=== PATIENT | female | born 1990 | race Caucasian/White ===

== ENCOUNTER 2017-01-05 12:12 | Emergency (ER) | payer BC ==
[~2017-01-05] VITALS: Ht 154.9 cm; Wt 65.2 kg
[~2017-01-05 12:12] MED LIST: CALC750T4; IBUP-1547 PO; OXYC1TAB8 PO; PREN1TAB53 PO
[2017-01-05 12:15] VITALS: Ht 154.9 cm; Wt 65.2 kg
--- OUTSIDE RECORDS SUMMARY | 2017-01-05 12:17 | XMS REPORT | Continuity of Care Document ---
Author Author [facility] Organization [facility] Address Unknown Phone Unavailable Support Name Relationship Address Phone JOHN MONTIEL MD Caregiver [address] [place] [address] [place] [address] Unavailable JOHN MONTIEL MD Caregiver [address] [place] [address] [place] [address] Unavailable JOSEFA STRONG MD Caregiver [address] [place] [address] [place] [address] Unavailable PAULINO ESPINOZA Next Of Kin [address] [id number] Insurance Providers Guarantor Yamila Orlando Address [address] [place] [address] CELL Email [email or web address] [employer] Other Policy Number [id number] Subscriber's Name Paulino Espinoza Relationship 01 Spouse Group Number [id number] Effective Date 14 Advance Directives Directive Response Recorded Date/Time Ordered Resuscitation Status Full Code 07/26/16 6:15am Resuscitation Documents on File No 07/26/16 6:50am DPOA for Healthcare Only No 07/26/16 6:50am Living Will No 07/26/16 6:50am Problems Active Problems Medical Problem Onset Date Status Spotting and cramping affecting , antepartum Unknown Acute Medications Current Home Medications Medication Dose Units Route Directions Days Qty Instructions Start Date Calcium Carbonate (Tums) 300 Mg Tab.chew 07/26/16 Ibuprofen 800 Mg Tablet 800 Mg Oral Every 8 Hours as needed for Pain 30 Tablet 07/28/16 Oxycodone Hcl/Acetaminophen (Percocet 5-325 Mg Tablet) 5-325 Tablet 1-2 Tab Oral Every 4 Hours as needed for Pain 15 Tablet 07/28/16 Vits W-Ca,Fe,Fa(<1MG) () 1 Tab Tablet 1 Tab Oral Daily 05/08/11 Past Home Medications Medication Directions Ordered Status Cephalexin Monohydrate (Cephalexin) 500 Mg Capsule, 500 Mg Oral Every 8 Hours 06/14/13 Discontinued Social History Social History Problem Response Recorded Date/Time Onset Date Status Reason for Hospitalization 07/28/2016 8:53am Not Applicable Not Applicable Chewing Tobacco Status No 07/01/2013 8:47am Not Applicable Not Applicable Hx Substance Use No 07/26/2016 6:50am Not Applicable Not Applicable Hx Alcohol Use No 07/04/2015 1:43pm Not Applicable Not Applicable Has the pt used tobacco in the last 12 months No 07/26/2016 6:50am Not Applicable Not Applicable Query Response Start Date Stop Date Smoking Status Never smoker Hospital Discharge Instructions Instructions: Care Instructions: Reason for Hospitalization: I was in the hospital because (patient own words): to have a baby Discharge Diet: Regular Discharge Activity: per instruction sheet Follow Up Appointments: Dr Puri on September 06 at 2pm Pending Lab / Results: Will review at f/u apt Patient Instructions: per instruction sheet Wound/Incision Care: per instruction sheet Pain Management/Treatment: per instruction sheet Expected Signs/Symptoms: per instruction sheet Notify Physician If: per instruction sheet During Business Hours:: Please call the physician's office at [phone] After Business Hours:: Please call [phone] and have the heater operator page the physician. Condition at time of discharge: Good Plan of Care Discharge Date 07/28/16 1:52pm Disposition 01 DISCHARGED HOME, SELF-CARE Instructions/Education Provided MC Vaginal Delivery Prescriptions See Medication Section Care Plan and Goals See Discharge Instructions Section Functional Status Query Response Date Recorded Mobility Status Ambulatory July 28, 2016 8:53am Assistive Devices None July 28, 2016 8:53am Activity Limitations None July 28, 2016 8:53am Feeding Ability Independent July 28, 2016 8:53am Toileting Ability Independent July 28, 2016 8:53am Grooming Ability Independent July 28, 2016 8:53am Dressing Ability Independent July 28, 2016 8:53am Driving Ability Independent July 28, 2016 8:53am Housework Ability Independent July 28, 2016 8:53am Meal Preparation Ability Independent July 28, 2016 8:53am Stair Climbing Ability Independent July 28, 2016 8:53am Ability to complete ADL's impeded by No change July 28, 2016 8:53am Cognitive/Perceptual Impairments None July 28, 2016 8:53am Preferred Method of Learning Demonstration July 26, 2016 7:06am Allergies, Adverse Reactions, Alerts Allergen Type Severity Reaction Status Last Updated No Known Drug Allergies Allergy Unknown Active 07/26/16 Immunizations Query Response on File Recorded Date/Time Hx Influenza Vaccination Y 201007/01/13 8:47am Hx Pneumococcal Vaccination No 07/01/13 8:47am Hx Influenza Vaccination Y 201007/01/13 8:47am Influenza Vaccine Hx 05-24-16 07/26/16 6:50am Tdap Vaccine Hx 07-06-16 07/26/16 6:50am Vital Signs Acute Vital Signs Vital Response Date/Time Temperature (Fahrenheit) 98.2 deg F (96.8 - 99.1) 07/28/2016 1:20pm Temperature (Calculated Celsius) 36.62319 degrees C (36.0 - 37.3) 07/28/2016 1:20pm Pulse Rate (adult) 94 bpm (60 - 100) 07/28/2016 1:20pm Respiratory Rate 20 breaths/min (10 - 20) 07/28/2016 1:20pm O2 Sat by Pulse Oximetry 98 % (90 - 100) 07/28/2016 1:20pm Oxygen Delivery Method Room Air 07/28/2016 1:20pm Blood Pressure 118/78 mm Hg 07/28/2016 1:20pm Blood Pressure Source Automatic Cuff 07/28/2016 1:20pm Height (Feet) 5 feet 07/26/2016 6:50am Height (Inches) 1.00 inches 07/26/2016 6:50am Weight (Kilograms) 76.000 kg 07/26/2016 6:50am Height 5 ft 1 in 07/26/2016 6:50am Weight 167.55 lb 07/26/2016 6:50am Body Mass Index 31.0 kg/m^2 07/26/2016 6:50am Results Laboratory Results Test Name Result Units Flags Reference Collection Date/Time Result Date/ Time Comments Glucose Level 107 MG/DL 65-110 05/19/2016 3:50pm 05/19/2016 4:07pm White Blood Count 9.6 T/MM3 4.5-11.0 07/27/2016 7:08am 07/27/2016 8: 10am Red Blood Count 2.94 M/MM3 L 4.00-5.20 07/27/2016 7:08am 07/27/2016 8: 10am Hemoglobin 8.4 GM/DL D L 08-1207/27/2016 7:08am 07/27/2016 8:10am Hematocrit 25.5 % D L 36-46 07/27/2016 7:08am 07/27/2016 8:10am Mean Corpuscular Volume 86.7 UM3 80-100 07/27/2016 7:08am 07/27/2016 8: 10am Mean Corpuscular Hemoglobin 28.6 UUG 26-34 07/27/2016 7:082015 8:10am Mean Corpuscular Hemoglobin Concent 32.9 GM/DL 31-37 07/27/2016 7:0807/27/2016 8:10am RDW Standard Deviation 42.9 FL 36.9-50.2 07/27/2016 7:0807/27/2016 8 :10am Platelet Count 120 T/MM3 L 130-400 07/27/2016 7:08am 07/27/2016 8:10am Mean Platelet Volume 11.3 UM3 9.4-12.4 07/27/2016 7:08am 07/27/2016 8: 10am Procedures Procedure Status Date Provider(s) ROUTINE VENIPUNCTURE Completed 05/19/16 ASSAY GLUCOSE BLOOD QUANT Completed 05/19/16 HEMATOCRIT Completed 05/19/16 HEMOGLOBIN Completed 05/19/16 OB US LIMITED FETUS(S) Completed 07/04/16 Encounters Encounter Location Arrival/Admit Date Discharge/Depart Date Attending Provider Discharged Inpatient [facility] 07/26/16 6:05am 07/28/16 1:52pm JOHN MONTIEL MD Registered Clinic [facility] 07/04/16 2:33pm JOHN MONTIEL MD Registered [facility] 05/19/16 3:42pm JOHN MONTIEL MD
--- NOTE | 2017-01-05 12:26 | ERPDOC ---
Departure Disposition Decision Date: January 05, 2017 Disposition Decision Time: 13:18 Disposition: 01 DISCHARGED HOME, SELF-CARE Impression Impression Impression: Primary Impression: Pharyngitis Pharyngitis/tonsillitis etiology: unspecified etiology Qualified Codes: J02.9 - Acute pharyngitis, unspecified Severity: Moderate Condition: Stable Seen By: Physician only Referrals: JOSEFA STRONG MD (Family) Patient Instructions: Strep Throat (ED) Problems/Meds/Labs Reviewed?: Yes Medications reviewed and manag: Yes Departure Forms: Return to Work/School Permit Return to Work/School Date: January 06, 2017 Follow up care ordered?: Yes Mental Status: Alert, Oriented Scripts Amoxicillin (Amoxicillin) 500 Mg Tablet 500 MG PO BID for 10 Days, 0 Refills Prov: MIKE BARCLAY MD 01/05/17 HPI General Chief Complaint: Throat Pain/Injury Stated Complaint: EAR PAIN, THROAT PAIN, BODY CHILLS Time Seen by Provider: 12:26 Source: patient Exam Limitations: no limitations HPI Dental Initial Comments Patient is a 26-year-old female presents to the emergency department for evaluation of throat pain, ear pain body chills. The symptoms have been going on for 36 hours, patient is only taking acetaminophen no acute decongestants or other vvbj-ywd-[id number] medications. Patient states that she normally gets sinus infections so she decided she should come in immediately for evaluation. Occurred At: home Onset: Gradual Duration: other (2 days) Problem: painful swallowing Allergies: Coded Allergies: No Known Drug Allergies (Verified Allergy, Unknown, 01/05/17) Past History Past Medical History Pt denies signifigant PMH Surgical History Denies Surgeries Vaccines Hx Influenza Vaccination: Yes (2010) Hx Pneumococcal Vaccination: No Social History Does patient use chewing tobac: No Second Hand Exposure: No Substance Use Type: does not use Alcohol Intake: none Last Drink: prior to arrival Sexuality: male partner Review of Systems Constitutional Constitutional: chills, DENIES: appetite decrease, dizziness, fever, weakness Eyes Vision: DENIES: double vision, loss of visual ramos ENMT Ears: pain Sinuses: DENIES: congestion, rhinorrhea Mouth/Throat: scratchy throat, sore throat Cardiovascular Cardiac: DENIES: chest pain, dyspnea on exertion Pulmonary Respiratory: DENIES: cough, dyspnea, sputum, tachypnea GI Upper Abdomen: DENIES: nausea, pain, vomiting Lower Abdomen: DENIES: constipation, diarrhea, pain General: DENIES: frequency, urgency Musculoskeletal General: DENIES: cramps, pain, weakness Integumentary Skin: DENIES: color change, itching, rash Endocrine Endocrine: DENIES: heat/cold intolerance Hematologic/Lymphatic Hematologic/Lymphatic: DENIES: anemia Exam General General Nourishment: well nourished, well developed Vital Signs: RN Vital Signs have been reviewed: Yes, Temperature: 98.4, Source : Oral, Heart Rate: 91, Respiratory Rate: 18, BP: 111/62, Pulse Oximetry: 100 Height (Feet): 5 Height (Inches): 1.00 [facility] Dental Face: NOT FOUND: bruising, erythema, swelling, tender Jaw: NOT FOUND: asymmetry Glands: NOT FOUND: L parotid swollen, R parotid swollen Lips: NOT FOUDN: laceration, swelling Gums: moist, pink, NOT FOUND: swelling Teeth: NOT FOUND: caries, fractures, missing Pharynx: cobblestoning, erythema, exudate, swelling Tonsils: erythema, exudate Neck: NOT FOUND: L anterior adenopathy, L posterior adenopathy, R anterior adenopathy, R posterior adenopathy Neurologic RN Documented GCS Eye Opening: Verbal: Motor: Total: Differential Diagnoses Considering: Peritonsillar Abscess, Retropharyngeal Abscess, Pharyngitis Strep , Sinusitis, Other (viral illness) Progress Results/Orders Orders Procedure Category Date Status Time Strep A Antigen Screen LAB 01/05/17 Complete 12:32 Group A Strep Culture [id number] 01/05/17 In Process 13:03 Lab Results Laboratory Tests Test 01/05/17 12:35 Group A Streptococcus Screen Negative Progress Progress Patient's rapid strep is negative MIKE BARCLAY MD January 05, 2017 12:26
--- NOTE | 2017-01-05 12:31 | NUR ---
PROVIDER DR. BARCLAY AT BEDSIDE FOR EXAM.
[2017-01-05] MEDS ORDERED: ACET-62 PO (12:41)
[2017-01-05] MEDS ORDERED: AMOX500T2 PO (13:18)
--- NOTE | 2017-01-05 13:25 | NUR ---
VS CHANGE DISMISSAL VS REVEAL PT TO BE SLIGHTLY TACHYCARDIC AT 104 WITH A 100.4 ORAL TEMPERATURE. VS REVIEWED WITH DR. BARCLAY.
[2017-01-05 13:28] VITALS: BP 110/70; PULSE 106; RESP 18; TEMP 100.4; O2SAT 98
--- NOTE | 2017-01-05 13:28 | NUR ---
DISCHARGE WRITTEN INSTRUCTIONS WITH AMOXICILLIN RX REVIEWED AND SENT WITH PT. PT VERBALIZES UNDERSTANDING OF DI AND MEDICATION, DENIES QUESTIONS. REPORTS PAIN REMAINS 03/06. PT AMBULATES OUT OF ER WITH STEADY GAIT AT THIS TIME.
== END 2017-01-05 13:28 | disposition home or self-care (01) ==
LOC: ED 12:12
DX: J02.9 Acute pharyngitis, unspecified (principal)
CPT/HCPCS: 87081; 87430